=== PATIENT | male | born 1960 | race African-American/Black ===

== ENCOUNTER 2017-01-28 17:46 | Inpatient (IN) | payer OTHER ==
[2017-01-28 18:22] VITALS: BMI 25.0
--- NOTE | 2017-01-28 20:50 | HP ---
COWS - Scale Resting Pulse: 0= IN 80 or Below Sweatin=Flushed/Facial Moisture Restless Observation: 3= Extraneous Movement Pupil Size: 2= Moderately Dilated Bone or Joint Aches: 2= Severe Diffuse Aches Runny Nose/ Eye Tearin= Runny Nose/Eyes GI Upset > 30mins: 3= Vomiting/Diarrhea Tremor Observation: 2= Slight Tremor Visible Yawning Observation: 2= >3x During Session Anxiety or Irritability: 2=Irritable/Anxious Goose Flesh Skin: 0=Smooth Skin COWS Score: 20 Admission ROS BHS - HPI Chief Complaint: i am here to stop using heroin,cocaine,alcohol Allergies/Adverse Reactions: Allergies Allergy/AdvReac Type Severity Reaction Status Date / Time No Known Allergies Allergy Verified 01/28/17 20:45 History of Present Illness: this 57 years old male with heroin,cocaine and alcohol dependence,seeking detox, last treatment 11/05 in facility in [place] nicotine dependence multiple admissions in detox,keep relapsing longest period of sobriety 2 years Exam Limitations: No Limitations - Ebola screening Have you traveled outside of the country in the last 21 days: No Have you had contact with anyone from an Ebola affected area: No Have you been sick,other than usual withdrawal symptoms: No Do you have a fever: No - Review of Systems Constitutional: Diaphoresis, Loss of Appetite, Malaise, Night Sweats, Weakness, Unintentional Wgt. Loss, Unexplained wgt Loss EENT: reports: Tearing, Nose Congestion Respiratory: reports: No Symptoms reported, Other (asthma) Cardiac: reports: No Symptoms Reported GI: reports: Diarrhea, Nausea, Vomiting, Abdominal cramping : reports: No Symptoms Reported Musculoskeletal: reports: Back Pain, Joint Pain, Muscle Pain Integumentary: reports: Dryness Neuro: reports: Headache Endocrine: reports: No Symptoms Reported Hematology: reports: No Symptoms Reported Psychiatric: reports: No Sypmtoms Reported, Judgement Intact, Mood/Affect Appropiate, Orientated x3 Other Systems: Reviewed and Negative Patient History - Patient Medical History Hx Anemia: No Hx Asthma: Yes (on albuterol inhaler) Hx Chronic Obstructive Pulmonary Disease (COPD): No Hx Cancer: No Hx Cardiac Disorders: No Hx Congestive Heart Failure: No Hx Hypertension: No Hx Hypercholesterolemia: No Hx Pacemaker: No HX Cerebrovascular Accident: No Hx Seizures: No Hx Dementia: No Hx Diabetes: No Hx Gastrointestinal Disorders: No Hx Liver Disease: No Hx Genitourinary Disorders: No Hx Sexually Transmitted Disorders: No Hx Renal Disease (ESRD): No Hx Thyroid Disease: No Hx Human Immunodeficiency Virus (HIV): No (last 12/06 negative) Hx Hepatitis C: No Hx Depression: No Hx Suicide Attempt: No Hx Bipolar Disorder: No Hx Schizophrenia: No Other Medical History: no suicidal,no homicidal - Patient Surgical History Past Surgical History: No - PPD History Previous Implant?: Yes Documented Results: Negative w/o proof Implanted On Prior R Admission?: No PPD to be Administered?: Yes - Smoking Cessation Smoking history: Current every day smoker Have you smoked in the past 12 months: Yes Aproximately how many cigarettes per day: 5 Cigars Per Day: 0 Hx Chewing Tobacco Use: No Initiated information on smoking cessation: Yes 'Breaking Loose' booklet given: 01/28/17 - Substance & Tx. History Hx Alcohol Use: Yes Hx Substance Use: Yes Substance Use Type: Alcohol, Cocaine, Heroin Hx Substance Use Treatment: Yes ([facility] in [place] in 11/05) - Substances Abused Heroin Route: Inhalation Frequency: Daily Amount used: 5 bags Age of first use: 50 Date of Last Use: 01/28/17 Alcohol Route: Oral Frequency: Daily Amount used: 2 pints of vodka/2 of 6 packs of 12 ozs of beer Age of first use: 45 Date of Last Use: 01/28/17 Cocaine Route: Inhalation Frequency: 3-6 times per week Amount used: 100$ Age of first use: 55 Date of Last Use: 01/28/17 Family Disease History - Family Disease History Family History: Denies Admission Physical Exam [facility] - Vital Signs Vital Signs: Vital Signs - 24 hr 01/28/17 18:14 Temperature 98.0 F Pulse Rate 68 Respiratory 16 Rate Blood Pressure 144/87 - Physical General Appearance: Yes: Moderate Distress, Tremorous, Irritable, Sweating, Anxious HEENTM: Yes: JOSE CARLOS, Pharynx Normal Respiratory: Yes: Lungs Clear, Normal Breath Sounds, No Respiratory Distress Neck: Yes: Within Normal Limits, Supple, Trachea in good position Breast: Yes: Within Normal Limits Cardiology: Yes: Within Normal Limits, Regular Rhythm, Regular Rate, S1, S2 Abdominal: Yes: Within Normal Limits, Normal Bowel Sounds, Non Tender, Flat, Soft Genitourinary: Yes: Within Normal Limits Back: Yes: Within Normal Limits Musculoskeletal: Yes: full range of Motion, Back pain, Joint Stiffness, Muscle Pain Extremities: Yes: Normal Range of Motion, Tremors, Other (deformity of left middle finger old injury) Neurological: Yes: complex director II-XII NML intact, Fully Oriented, Alert, Motor Strength 5/5 Integumentary: Yes: Within Normal Limits, Dry Lymphatic: Yes: Within Normal Limits - Diagnostic (1) Opioid dependence with withdrawal Current Visit: Yes Status: Acute (2) Alcohol dependence with uncomplicated withdrawal Current Visit: Yes Status: Acute (3) Cocaine dependence Current Visit: Yes Status: Acute (4) Nicotine dependence Current Visit: Yes Status: Acute (5) Weight loss Current Visit: Yes Status: Acute (6) Asthma Current Visit: Yes Status: Acute Cleared for Admission [facility] - Detox or Rehab [facility] Level of Care: Medically Managed Detox Regimen/Protocol: Methadone/Librium S Breath Alcohol Content Breath Alcohol Content: 0 Urine Drug Screen - Results Urine Drug Screen Results: SAE-Cocaine, OPI-Opiates
[2017-01-28] MEDS ORDERED: IBUPROFEN 400 MG TABLET (FP) PO PRN (21:12)
[2017-01-28] MEDS ORDERED: MAGNESIUM CITRATE 300 ML BOTTLE PO PRN (21:12)
[2017-01-28] MEDS ORDERED: ACETAMINOPHEN 325 MG TABLET (FP) PO PRN (21:12)
[2017-01-28] MEDS ORDERED: diphenhydrAMINE HCL 50 MG CAPSULE PO PRN (21:12)
[2017-01-28] MEDS ORDERED: hydrOXYzine PAMOATE 25 MG CAPSULE (FP) PO PRN (21:12)
[2017-01-28] MEDS ORDERED: MAG HYDROX/AL HYDROX/SIMETH 30 ML UNIT-DOSE CUP PO PRN (21:12)
[2017-01-28] MEDS ORDERED: METHADONE HCL 10 MG TABLET (FOR DETOX USE ONLY) PO ONE ×2 (21:12→23:00)
[2017-01-28] MEDS ORDERED: chlordiazePOXIDE HCL 25 MG CAPSULE PO PRN (21:12)
[2017-01-28] MEDS ORDERED: P-EPHED 60MG/TRIPROLIDI 2.5MG TABLET PO PRN (21:12)
[2017-01-28] MEDS ORDERED: MENTHOL/PHENOL 1 EACH UD MM PRN (21:12)
[2017-01-28] MEDS ORDERED: guaiFENesin/D-METHORPHAN HB 10 ML UNIT-DOSE CUPS PO PRN (21:12)
[2017-01-28] MEDS ORDERED: MAGNESIUM HYDROX 2400MG/30ML ORAL SUSPENSION 30 ML CUP PO PRN (21:12)
[2017-01-28] MEDS ORDERED: LOPERAMIDE HCL 2 MG CAPSULE PO PRN (21:12)
[2017-01-28] MEDS ORDERED: ALBUTEROL SO4 6.7 GM HFA INHALER IH PRN (21:16)
[2017-01-28] MEDS: chlordiazePOXIDE HCL 25 MG CAPSULE PO SCH (22:54)
[2017-01-28] MEDS: THIAMINE HCL 100 MG TABLET (FP) PO SCH (22:55)
[2017-01-28 23:11] LABS: URINE APPEARANCE CLEAR; URINE BILIRUBIN NEGATIVE (NEGATIVE); URINE BLOOD NEGATIVE (NEGATIVE); URINE COLOR LTYELLOW; URINE GLUCOSE (UA) NEGATIVE (NEGATIVE); URINE KETONE 1+ (NEGATIVE); URINE LEUK ESTERASE NEGATIVE (NEGATIVE); URINE NITRITE NEGATIVE (NEGATIVE); URINE PROTEIN NEGATIVE (NEGATIVE); URINE UROBILINOGEN NEGATIVE mg/dL (0.2-1.0)
[2017-01-29] MEDS: chlordiazePOXIDE HCL 25 MG CAPSULE PO SCH ×4 (06:05→22:49)
[2017-01-29] MEDS ORDERED: METHADONE HCL 10 MG TABLET (FOR DETOX USE ONLY) PO SCH (10:00)
[2017-01-29 10:02] LABS: MCH 30.7 pg (25.7-33.7); MCHC 33.8 g/dl (32.0-35.9); MEAN CELL VOLUME 90.9 fl (80-96); MEAN PLT VOLUME 9.3 fl (7.5-11.1); PLATELET COUNT 175 K/MM3 (134-434); RDW 14.4 % (11.9-15.9); WHITE BLOOD COUNT 4.3 K/mm3 (4.0-10.0)
[2017-01-29 10:09] LABS: ALBUMIN 3.1 g/dl (3.4-5.0); ANION GAP 5 (8-16); CALCIUM 8.6 mg/dL (8.5-10.1); CO2 32 mmol/L (21-32); GLUCOSE,RANDOM 139 mg/dL (74-106)
[2017-01-29 10:12] LABS: ALK PHOS 67 U/L (45-117); BILIRUBIN,TOTAL 0.8 mg/dL (0.2-1.0); CREATININE 0.9 mg/dL (0.7-1.3); SGOT/AST 19 U/L (15-37); SGPT/ALT 25 U/L (12-78); TOT PROT 6.3 g/dl (6.4-8.2)
[2017-01-29] MEDS: PRENATAL VITAMINS W/ FOLIC ACID TABLET (FP) PO SCH (11:05)
--- NOTE | 2017-01-29 11:19 | PN ---
[facility] CIWA - CIWA Score Nausea/Vomitin Muscle Tremors: 3 Anxiety: 3 Agitation: 2 Paroxysmal Sweats: 1-Minimal Palms Moist Orientation: 0-Oriented Tacttile Disturbances: 1-Very Mild Itch/Numbness Auditory Disturbances: 1-Very Mild Visual Disturbances: 1-Very Mild Sensitivity Headache: 2-Mild CIWA-Ar Total Score: 17 BHS COWS - Scale Resting Pulse: 0= [place] 80 or Below Sweatin= Chills/Flushing Restless Observation: 3= Extraneous Movement Pupil Size: 1= Pupils >than Normal Bone or Joint Aches: 2= Severe Diffuse Aches Runny Nose/ Eye Tearin= Runny Nose/Eyes GI Upset > 30mins: 3= Vomiting/Diarrhea Tremor Observation of Outstretched Hands: 2= Slight Tremor Visible Yawning Observation: 1= 1-2x During Session Anxiety or Irritability: 2=Irritable/Anxious Goose Flesh Skin: 0=Smooth Skin COWS Score: 17 S Progress Note (SOAP) Subjective: alert,irritable,anxious,interrupted sleep,tremor,pain in the body and back Objective: 01/29/17 11:16 Vital Signs Temperature 97.7 F 01/29/17 06:09 Pulse Rate 62 01/29/17 06:09 Respiratory Rate 16 01/29/17 06:09 Blood Pressure 101/87 01/29/17 06:09 O2 Sat by Pulse Oximetry (%) ekg nsr,inverted t in 3 no chest pain,no sob,no dizziness Laboratory Last Values WBC 4.3 K/mm3 (4.0-10.0) 01/29/17 07:00 RBC 4.25 M/mm3 (4.00-5.60) 01/29/17 07:00 Hgb 13.0 GM/dL (11.7-16.9) 01/29/17 07:00 Hct 38.6 % (35.4-49) 01/29/17 07:00 MCV 90.9 fl (80-96) 01/29/17 07:00 MCH 30.7 pg (25.7-33.7) 01/29/17 07:00 MCHC 33.8 g/dl (32.0-35.9) 01/29/17 07:00 RDW 14.4 % (11.9-15.9) 01/29/17 07:00 Plt Count 175 K/MM3 (134-434) 01/29/17 07:00 MPV 9.3 fl (7.5-11.1) 01/29/17 07:00 Sodium 141 mmol/L (136-145) 01/29/17 07:00 Potassium 3.4 mmol/L (3.5-5.1) L 01/29/17 07:00 Chloride 104 mmol/L (98-107) 01/29/17 07:00 Carbon Dioxide 32 mmol/L (21-32) 01/29/17 07:00 Anion Gap 5 (8-16) L 01/29/17 07:00 BUN 8 mg/dL (7-18) 01/29/17 07:00 Creatinine 0.9 mg/dL (0.7-1.3) 01/29/17 07:00 Creat Clearance w eGFR > 60 (>60) 01/29/17 07:00 Random Glucose 139 mg/dL (74-106) H 01/29/17 07:00 Calcium 8.6 mg/dL (8.5-10.1) 01/29/17 07:00 Total Bilirubin 0.8 mg/dL (0.2-1.0) 01/29/17 07:00 AST 19 U/L (15-37) 01/29/17 07:00 ALT 25 U/L (12-78) 01/29/17 07:00 Alkaline Phosphatase 67 U/L (45-117) 01/29/17 07:00 Total Protein 6.3 g/dl (6.4-8.2) L 01/29/17 07:00 Albumin 3.1 g/dl (3.4-5.0) L 01/29/17 07:00 Urine Color Ltyellow 01/28/17 Unknown Urine Appearance Clear 01/28/17 Unknown Urine pH 5.0 (5.0-8.0) 01/28/17 Unknown Urine Protein Negative (NEGATIVE) 01/28/17 Unknown Urine Glucose (UA) Negative (NEGATIVE) 01/28/17 Unknown Urine Ketones 1+ (NEGATIVE) H 01/28/17 Unknown Urine Blood Negative (NEGATIVE) 01/28/17 Unknown Urine Nitrite Negative (NEGATIVE) 01/28/17 Unknown Urine Bilirubin Negative (NEGATIVE) 01/28/17 Unknown Urine Urobilinogen Negative mg/dL (0.2-1.0) 01/28/17 Unknown Ur Leukocyte Esterase Negative (NEGATIVE) 01/28/17 Unknown Assessment: 01/29/17 11:18 withdrawal symptom Plan: continue detox,k dur 20 meq po daily for hypokalemia k is 3.2,repeat k and fasting glucose in am
[2017-01-29] MEDS ORDERED: POTASSIUM CHLORIDE TABS 20 MEQ TABLET.ER (FP) PO ONE (11:21)
[2017-01-29] MEDS: NICOTINE 14 MG/24 HOURS TOPICAL PATCH TD SCH (11:23)
--- NOTE | 2017-01-29 15:37 | EKG ---
Test Reason : Blood Pressure : / mmHG Vent. Rate : 063 BPM Atrial Rate : 063 BPM P-R Int : 190 ms QRS Dur : 096 ms QT Int : 418 ms P-R-T Axes : 050 -30 007 degrees QTc Int : 427 ms NORMAL SINUS RHYTHM POSSIBLE LEFT ATRIAL ENLARGEMENT LEFT AXIS DEVIATION INCOMPLETE RIGHT BUNDLE BRANCH BLOCK ANTEROSEPTAL INFARCT , AGE UNDETERMINED ABNORMAL ECG NO PREVIOUS ECGS AVAILABLE Confirmed by VALERIE ORELLANA, SONIA ([id number]) on 01/29/2017 3:37:14 PM Referred By: Confirmed By:SONIA PADILLA MD
[2017-01-29] MEDS: THIAMINE HCL 100 MG TABLET (FP) PO SCH (22:50)
[2017-01-30] MEDS: chlordiazePOXIDE HCL 25 MG CAPSULE PO SCH ×3 (05:45→17:55)
--- NOTE | 2017-01-30 09:46 | PN ---
S CIWA - CIWA Score Nausea/Vomitin Muscle Tremors: 3 Anxiety: 3 Agitation: 2 Paroxysmal Sweats: 1-Minimal Palms Moist Orientation: 0-Oriented Tacttile Disturbances: 1-Very Mild Itch/Numbness Auditory Disturbances: 1-Very Mild Visual Disturbances: 0-None Headache: 2-Mild CIWA-Ar Total Score: 16 BHS COWS - Scale Resting Pulse: 0= [place] 80 or Below Sweatin= Chills/Flushing Restless Observation: 3= Extraneous Movement Pupil Size: 1= Pupils >than Normal Bone or Joint Aches: 2= Severe Diffuse Aches Runny Nose/ Eye Tearin= Nasal Congestion GI Upset > 30mins: 2= Nausea/Diarrhea Tremor Observation of Outstretched Hands: 2= Slight Tremor Visible Yawning Observation: 1= 1-2x During Session Anxiety or Irritability: 2=Irritable/Anxious Goose Flesh Skin: 0=Smooth Skin COWS Score: 15 BHS Progress Note (SOAP) Subjective: alert,irritable,anxious,interrupted sleep,tremor,pain in the body and back Objective: 01/30/17 09:43 Vital Signs Temperature 96.3 F L 01/30/17 06:19 Pulse Rate 60 01/30/17 06:19 Respiratory Rate 16 01/30/17 06:19 Blood Pressure 108/69 01/30/17 06:19 O2 Sat by Pulse Oximetry (%) Laboratory Results - last 24 hr 01/28/17 01/29/17 01/29/17 Unknown 07:00 07:00 WBC 4.3 RBC 4.25 Hgb 13.0 Hct 38.6 MCV 90.9 MCH 30.7 MCHC 33.8 RDW 14.4 Plt Count 175 MPV 9.3 Sodium 141 Potassium 3.4 L Chloride 104 Carbon Dioxide 32 Anion Gap 5 L BUN 8 Creatinine 0.9 Creat Clearance w eGFR > 60 Random Glucose 139 H Calcium 8.6 Total Bilirubin 0.8 AST 19 ALT 25 Alkaline Phosphatase 67 Total Protein 6.3 L Albumin 3.1 L Urine Color Ltyellow Urine Appearance Clear Urine pH 5.0 Ur Specific [place] 1.015 Urine Protein Negative Urine Glucose (UA) Negative Urine Ketones 1+ H Urine Blood Negative Urine Nitrite Negative Urine Bilirubin Negative Urine Urobilinogen Negative Ur Leukocyte Esterase Negative RPR Titer 01/29/17 07:00 WBC RBC Hgb Hct MCV MCH MCHC RDW Plt Count MPV Sodium Potassium Chloride Carbon Dioxide Anion Gap BUN Creatinine Creat Clearance w eGFR Random Glucose Calcium Total Bilirubin AST ALT Alkaline Phosphatase Total Protein Albumin Urine Color Urine Appearance Urine pH Ur Specific [place] Urine Protein Urine Glucose (UA) Urine Ketones Urine Blood Urine Nitrite Urine Bilirubin Urine Urobilinogen Ur Leukocyte Esterase RPR Titer Nonreactive Assessment: 01/30/17 09:45 withdrawal symptom Plan: continue detox,fasting glucose and repeat k pending
[2017-01-30] MEDS: POTASSIUM CHLORIDE TABS 20 MEQ TABLET.ER (FP) PO SCH (10:29)
[2017-01-30] MEDS: METHADONE HCL 5 MG TABLET (FOR DETOX USE ONLY) PO SCH (10:29)
[2017-01-30] MEDS: PRENATAL VITAMINS W/ FOLIC ACID TABLET (FP) PO SCH (10:29)
[2017-01-30] MEDS: NICOTINE 14 MG/24 HOURS TOPICAL PATCH TD SCH (10:30)
[2017-01-30] MEDS: chlordiazePOXIDE 5 MG CAPSULE PO SCH (22:30)
[2017-01-30] MEDS: THIAMINE HCL 100 MG TABLET (FP) PO SCH (22:31)
[2017-01-31] MEDS: chlordiazePOXIDE 5 MG CAPSULE PO SCH ×3 (06:39→17:49)
--- NOTE | 2017-01-31 09:58 | PN ---
BHS Progress Note (SOAP) Subjective: Sweating,interrupted sleep,restless,muscle aches. Objective: 01/31/17 09:56 Vital Signs - 8 hr 01/31/17 01/31/17 01/31/17 03:30 06:00 09:50 Temperature 97.7 F 99.3 F Pulse Rate 58 L 82 Respiratory 18 18 18 Rate Blood Pressure 114/64 100/70 Laboratory Last Values WBC 4.3 K/mm3 (4.0-10.0) 01/29/17 07:00 RBC 4.25 M/mm3 (4.00-5.60) 01/29/17 07:00 Hgb 13.0 GM/dL (11.7-16.9) 01/29/17 07:00 Hct 38.6 % (35.4-49) 01/29/17 07:00 MCV 90.9 fl (80-96) 01/29/17 07:00 MCH 30.7 pg (25.7-33.7) 01/29/17 07:00 MCHC 33.8 g/dl (32.0-35.9) 01/29/17 07:00 RDW 14.4 % (11.9-15.9) 01/29/17 07:00 Plt Count 175 K/MM3 (134-434) 01/29/17 07:00 MPV 9.3 fl (7.5-11.1) 01/29/17 07:00 Sodium 141 mmol/L (136-145) 01/29/17 07:00 Potassium 3.8 mmol/L (3.5-5.1) 01/30/17 07:00 Chloride 104 mmol/L (98-107) 01/29/17 07:00 Carbon Dioxide 32 mmol/L (21-32) 01/29/17 07:00 Anion Gap 5 (8-16) L 01/29/17 07:00 BUN 8 mg/dL (7-18) 01/29/17 07:00 Creatinine 0.9 mg/dL (0.7-1.3) 01/29/17 07:00 Creat Clearance w eGFR > 60 (>60) 01/29/17 07:00 Random Glucose 139 mg/dL (74-106) H 01/29/17 07:00 Fasting Glucose 99 mg/dL (70-105) 01/30/17 07:00 Calcium 8.6 mg/dL (8.5-10.1) 01/29/17 07:00 Total Bilirubin 0.8 mg/dL (0.2-1.0) 01/29/17 07:00 AST 19 U/L (15-37) 01/29/17 07:00 ALT 25 U/L (12-78) 01/29/17 07:00 Alkaline Phosphatase 67 U/L (45-117) 01/29/17 07:00 Total Protein 6.3 g/dl (6.4-8.2) L 01/29/17 07:00 Albumin 3.1 g/dl (3.4-5.0) L 01/29/17 07:00 Urine Color Ltyellow 01/28/17 Unknown Urine Appearance Clear 01/28/17 Unknown Urine pH 5.0 (5.0-8.0) 01/28/17 Unknown Ur Specific [place] 1.015 (1.005-1.025) 01/28/17 Unknown Urine Protein Negative (NEGATIVE) 01/28/17 Unknown Urine Glucose (UA) Negative (NEGATIVE) 01/28/17 Unknown Urine Ketones 1+ (NEGATIVE) H 01/28/17 Unknown Urine Blood Negative (NEGATIVE) 01/28/17 Unknown Urine Nitrite Negative (NEGATIVE) 01/28/17 Unknown Urine Bilirubin Negative (NEGATIVE) 01/28/17 Unknown Urine Urobilinogen Negative mg/dL (0.2-1.0) 01/28/17 Unknown Ur Leukocyte Esterase Negative (NEGATIVE) 01/28/17 Unknown RPR Titer Nonreactive (NONREACTIVE) 01/29/17 07:00 labs noted Assessment: 01/31/17 09:57 Withdrawal sx. Plan: Continue detox
[2017-01-31] MEDS: METHADONE HCL 5 MG TABLET (FOR DETOX USE ONLY) PO SCH (10:10)
[2017-01-31] MEDS: PRENATAL VITAMINS W/ FOLIC ACID TABLET (FP) PO SCH (10:10)
[2017-01-31] MEDS: POTASSIUM CHLORIDE TABS 20 MEQ TABLET.ER (FP) PO SCH (10:10)
[2017-01-31] MEDS: NICOTINE 14 MG/24 HOURS TOPICAL PATCH TD SCH (10:13)
[2017-01-31] MEDS: THIAMINE HCL 100 MG TABLET (FP) PO SCH (22:43)
[2017-01-31] MEDS: chlordiazePOXIDE HCL 10 MG CAPSULE PO SCH (22:43)
[2017-02-01] MEDS: chlordiazePOXIDE HCL 10 MG CAPSULE PO SCH ×3 (05:24→18:40)
[2017-02-01] MEDS ORDERED: METHADONE HCL 10 MG TABLET (FOR DETOX USE ONLY) PO SCH (10:00)
[2017-02-01] MEDS: NICOTINE 14 MG/24 HOURS TOPICAL PATCH TD SCH (10:09)
[2017-02-01] MEDS: POTASSIUM CHLORIDE TABS 20 MEQ TABLET.ER (FP) PO SCH (10:09)
[2017-02-01] MEDS: PRENATAL VITAMINS W/ FOLIC ACID TABLET (FP) PO SCH (10:09)
--- NOTE | 2017-02-01 13:41 | PN ---
BHS Progress Note (SOAP) Subjective: Sweating,interrupted sleep,restless Objective: 02/01/17 13:40 Vital Signs - 8 hr 02/01/17 02/01/17 06:00 10:00 Temperature 97.5 F L 98.1 F Pulse Rate 54 L 71 Respiratory 18 20 Rate Blood Pressure 111/68 125/63 Laboratory Last Values WBC 4.3 K/mm3 (4.0-10.0) 01/29/17 07:00 RBC 4.25 M/mm3 (4.00-5.60) 01/29/17 07:00 Hgb 13.0 GM/dL (11.7-16.9) 01/29/17 07:00 Hct 38.6 % (35.4-49) 01/29/17 07:00 MCV 90.9 fl (80-96) 01/29/17 07:00 MCH 30.7 pg (25.7-33.7) 01/29/17 07:00 MCHC 33.8 g/dl (32.0-35.9) 01/29/17 07:00 RDW 14.4 % (11.9-15.9) 01/29/17 07:00 Plt Count 175 K/MM3 (134-434) 01/29/17 07:00 MPV 9.3 fl (7.5-11.1) 01/29/17 07:00 Sodium 141 mmol/L (136-145) 01/29/17 07:00 Potassium 3.8 mmol/L (3.5-5.1) 01/30/17 07:00 Chloride 104 mmol/L (98-107) 01/29/17 07:00 Carbon Dioxide 32 mmol/L (21-32) 01/29/17 07:00 Anion Gap 5 (8-16) L 01/29/17 07:00 BUN 8 mg/dL (7-18) 01/29/17 07:00 Creatinine 0.9 mg/dL (0.7-1.3) 01/29/17 07:00 Creat Clearance w eGFR > 60 (>60) 01/29/17 07:00 Random Glucose 139 mg/dL (74-106) H 01/29/17 07:00 Fasting Glucose 99 mg/dL (70-105) 01/30/17 07:00 Calcium 8.6 mg/dL (8.5-10.1) 01/29/17 07:00 Total Bilirubin 0.8 mg/dL (0.2-1.0) 01/29/17 07:00 AST 19 U/L (15-37) 01/29/17 07:00 ALT 25 U/L (12-78) 01/29/17 07:00 Alkaline Phosphatase 67 U/L (45-117) 01/29/17 07:00 Total Protein 6.3 g/dl (6.4-8.2) L 01/29/17 07:00 Albumin 3.1 g/dl (3.4-5.0) L 01/29/17 07:00 Urine Color Ltyellow 01/28/17 Unknown Urine Appearance Clear 01/28/17 Unknown Urine pH 5.0 (5.0-8.0) 01/28/17 Unknown Ur Specific [place] 1.015 (1.005-1.025) 01/28/17 Unknown Urine Protein Negative (NEGATIVE) 01/28/17 Unknown Urine Glucose (UA) Negative (NEGATIVE) 01/28/17 Unknown Urine Ketones 1+ (NEGATIVE) H 01/28/17 Unknown Urine Blood Negative (NEGATIVE) 01/28/17 Unknown Urine Nitrite Negative (NEGATIVE) 01/28/17 Unknown Urine Bilirubin Negative (NEGATIVE) 01/28/17 Unknown Urine Urobilinogen Negative mg/dL (0.2-1.0) 01/28/17 Unknown Ur Leukocyte Esterase Negative (NEGATIVE) 01/28/17 Unknown RPR Titer Nonreactive (NONREACTIVE) 01/29/17 07:00 labs noted Assessment: 02/01/17 13:41 Withdrawal sx. Plan: Continue detox
[2017-02-01] MEDS: THIAMINE HCL 100 MG TABLET (FP) PO SCH (23:01)
[2017-02-02] MEDS ORDERED: METHADONE HCL 5 MG TABLET (FOR DETOX USE ONLY) PO SCH (06:00)
[2017-02-02 06:22] VITALS: BP 103/69; PULSE 63; TEMP 97.5
--- NOTE | 2017-02-02 08:56 | DS ---
[facility] Detox Discharge Summary Admission Date: 01/28/17 Discharge Date: 02/02/17 - History Present History: Alcohol Dependence, Cocaine Dependence, Opioid Dependence Pertinent Past History: ASTHMA NICOTINE DEPENDENCE WEIGHT LOSS - Physical Exam Results Vital Signs: Vital Signs Temperature 97.5 F L 02/02/17 06:00 Pulse Rate 63 02/02/17 06:00 Respiratory Rate 18 02/02/17 06:00 Blood Pressure 103/69 02/02/17 06:00 O2 Sat by Pulse Oximetry (%) Pertinent Admission Physical Exam Findings: WITHDRAWAL FINDING - Treatment Hospital Course: Detox Protocol Followed, Detoxed Safely, Responded well, Discharged Condition Good Patient has Accepted a Rehab Referral to: DECLINED - Medication Discharge Medications: Ambulatory Orders Albuterol Sulfate Inhaler - [Ventolin Hfa Inhaler -] 2 inh PO Q6H PRN 01/28/17 - Diagnosis (1) Opioid dependence with withdrawal Current Visit: Yes Status: Acute (2) Alcohol dependence with uncomplicated withdrawal Current Visit: Yes Status: Acute (3) Cocaine dependence Current Visit: Yes Status: Acute (4) Nicotine dependence Current Visit: Yes Status: Acute (5) Weight loss Current Visit: Yes Status: Acute (6) Asthma Current Visit: Yes Status: Acute (7) Hypokalemia Current Visit: Yes Status: Acute - AMA Did Patient Leave Against Medical Advice: No
== END 2017-02-02 08:59 | disposition home or self-care (01) | DRG 773 ==
LOC: YASAS 17:46 → Y6N 21:56
PROVIDERS: ADMIT Internal Medicine Addiction Medicine; ATTEND Internal Medicine Addiction Medicine
PROC: HZ2ZZZZ Detoxification Services for Substance Abuse Treatment (ICD-10-PCS; principal; 2017-01-28)
DX: F11.23 Opioid dependence with withdrawal (principal); F10.230 Alcohol dependence with withdrawal, uncomplicated; F14.20 Cocaine dependence, uncomplicated; F17.210 Nicotine dependence, cigarettes, uncomplicated; J45.909 Unspecified asthma, uncomplicated; E87.6 Hypokalemia; Z87.898 Personal history of other specified conditions
CPT/HCPCS: 36415; 71010-TC; 80053; 81003; 82947; 84132; 85027; 86593; 93005; 93010

== ENCOUNTER 2023-10-13 12:47 | Inpatient (IN) | payer OTHER ==
[2023-10-13 13:57] VITALS: BMI 23.6
[2023-10-13] MEDS ORDERED: BENZOCAINE/MENTHOL (CHLORASEPTIC ) LOZENGE MM PRN (15:20)
[2023-10-13] MEDS ORDERED: MAGNESIUM HYDROX 2400MG/30ML ORAL SUSPENSION 30 ML CUP PO PRN (15:20)
[2023-10-13] MEDS ORDERED: ACETAMINOPHEN 325 MG TABLET (FP) PO PRN (15:20)
[2023-10-13] MEDS ORDERED: NALOXONE HCL 0.4 MG/ML VIAL IM PRN (15:20)
[2023-10-13] MEDS ORDERED: DICYCLOMINE HCL 10 MG CAPSULE PO PRN (15:20)
[2023-10-13] MEDS ORDERED: guaiFENesin 600 MG TABLET.ER (FP) PO PRN (15:20)
[2023-10-13] MEDS ORDERED: LOPERAMIDE HCL 2 MG CAPSULE PO PRN (15:20)
[2023-10-13] MEDS ORDERED: BENZONATATE 200 MG CAPSULE PO PRN (15:20)
[2023-10-13] MEDS ORDERED: MAG HYDROX/AL HYDROX/SIMETH 30 ML UNIT-DOSE CUP PO PRN (15:20)
[2023-10-13] MEDS ORDERED: POLYETHYLENE GLYCOL (HEALTHYLAX) 3350 17 GM PACKET PO PRN (15:20)
[2023-10-13] MEDS ORDERED: BISMUTH SUBSALICYLATE 524 MG/30 ML PO PRN (15:20)
[2023-10-13] MEDS ORDERED: ONDANSETRON *ODT* 4 MG TABLET SL PRN (15:20)
[2023-10-13] MEDS ORDERED: NALOXONE HCL (KLOXXADO) 8 MG SPRAY NS PRN (15:20)
[2023-10-13] MEDS ORDERED: methaDONE HCL 10 MG TABLET (FOR DETOX USE ONLY) ONE (16:43)
[2023-10-13] MEDS: methaDONE HCL 10 MG TABLET (FOR DETOX USE ONLY) PO ONE (16:47)
[2023-10-13] MEDS: hydrOXYzine PAMOATE 25 MG CAPSULE (FP) PO PRN (22:25)
[2023-10-13] MEDS: THIAMINE 100 MG TABLET PO SCH (22:25)
[2023-10-13] MEDS: MELATONIN 5 MG TABLETS PO SCH (22:25)
[2023-10-14] MEDS ORDERED: ALBUTEROL SO4 HFA INHALER IH PRN (03:27)
[2023-10-14] MEDS: PRENATAL VITAMINS W/ FOLIC ACID TABLET (FP) PO SCH (09:10)
[2023-10-14] MEDS: GABAPENTIN 300 MG CAPSULE PO SCH (09:10)
[2023-10-14] MEDS: TAMSULOSIN HCL 0.4 MG CAP PO SCH (09:10)
[2023-10-14] MEDS: FLU VACCINE (FLULAVAL) PF 60 MCG/0.5 ML SYRINGE 2023-2024 IM ONE (11:16)
[2023-10-14] MEDS: PNEUMOC 20-VAL CONJ-DIP CRM/PF 0.5 ML SYRINGE IM ONE (11:16)
[2023-10-14 11:17] LABS: HEMATOCRIT 39.3 % (35.4-49); MCH 29.7 pg (25.7-33.7); MCHC 33.1 g/dl (32.0-35.9); MEAN CELL VOLUME 89.7 fl (80-96); MEAN PLT VOLUME 8.6 fl (7.5-11.1); PLATELET COUNT 206 10^3/uL (134-434); RBC 4.38 M/mm3 (4.00-5.60); RDW 13.5 % (11.9-15.9); WHITE BLOOD COUNT 6.3 K/mm3 (4.0-10.0)
[2023-10-14 11:42] LABS: CHLORIDE 107 mmol/L (98-107); SODIUM 141 mmol/L (136-145)
[2023-10-14 11:52] LABS: ALBUMIN 3.4 g/dl (3.4-5.0); ANION GAP 5 mmol/L (4-13); BLOOD UREA NITROGEN 6.9 mg/dL (7-18); CALCIUM 9.2 mg/dL (8.5-10.1); CO2 29 mmol/L (21-32)
[2023-10-14 11:55] LABS: CREATININE 0.7 mg/dL (0.55-1.3); SGOT/AST 18 U/L (15-37); SGPT/ALT 25 U/L (13-61)
[2023-10-14 11:56] LABS: GLUCOSE,RANDOM 86 mg/dL (74-106)
[2023-10-14 11:57] LABS: BILIRUBIN,TOTAL 1.3 mg/dL (0.2-1); TOT PROT 7.2 g/dl (6.4-8.2)
[2023-10-14 11:58] LABS: ALK PHOS 74 U/L (45-117)
[2023-10-14 12:18] LABS: HIV INTERPRETATION NEGATIVE (NEGATIVE)
[2023-10-14] MEDS: cloNIDine HCL 0.1 MG TABLET PO PRN (22:26)
[2023-10-15] MEDS: methaDONE HCL 10 MG TABLET (FOR DETOX USE ONLY) PO ONE (10:46)
[2023-10-15] MEDS: IBUPROFEN 600 MG TABLET (FP) PO PRN (10:49)
[2023-10-15] MEDS: METHOCARBAMOL 500 MG TABLET PO PRN (22:32)
[2023-10-17] MEDS: methaDONE HCL 10 MG TABLET (FOR DETOX USE ONLY) PO ONE (09:41)
[2023-10-17] MEDS: IBUPROFEN 400 MG TABLET (FP) PO PRN (22:32)
[2023-10-18 09:50] VITALS: BP 127/85; PULSE 78; RESP 16; TEMP 98.1
== END 2023-10-18 09:00 | disposition home or self-care (01) | DRG 773 ==
LOC: YASAS 12:47 → Y6N 16:48
PROVIDERS: ADMIT Allergy & Immunology; ATTEND Surgery
PROC: HZ2ZZZZ Detoxification Services for Substance Abuse Treatment (ICD-10-PCS; principal; 2023-10-13)
DX: F11.23 Opioid dependence with withdrawal (principal); F14.20 Cocaine dependence, uncomplicated; G62.9 Polyneuropathy, unspecified; J45.20 Mild intermittent asthma, uncomplicated; N40.0 Benign prostatic hyperplasia without lower urinary tract symptoms; R76.8 Other specified abnormal immunological findings in serum; Z86.19 Personal history of other infectious and parasitic diseases; Z86.11 Personal history of tuberculosis; Z87.891 Personal history of nicotine dependence
CPT/HCPCS: 36415; 71046-TC-FY; 80053; 80307; 85027; 86593; 86780; 87389; 93005; 93010

== ENCOUNTER 2023-12-09 11:35 | Inpatient (IN) | payer OTHER ==
[2023-12-09 11:58] VITALS: BMI 21.9
[2023-12-09] MEDS ORDERED: ONDANSETRON *ODT* 4 MG TABLET SL PRN (12:34)
[2023-12-09] MEDS ORDERED: guaiFENesin 600 MG TABLET.ER (FP) PO PRN (12:34)
[2023-12-09] MEDS ORDERED: IBUPROFEN 400 MG TABLET (FP) PO PRN (12:34)
[2023-12-09] MEDS ORDERED: P-EPHED 60MG/TRIPROLIDI 2.5MG TABLET PO PRN (12:34)
[2023-12-09] MEDS ORDERED: ACETAMINOPHEN 325 MG TABLET (FP) PO PRN (12:34)
[2023-12-09] MEDS ORDERED: BENZOCAINE/MENTHOL (CHLORASEPTIC ) LOZENGE MM PRN (12:34)
[2023-12-09] MEDS ORDERED: NALOXONE (NARCAN) HCL 4 MG/0.1 ML SPRAY NS PRN (12:34)
[2023-12-09] MEDS ORDERED: BISMUTH SUBSALICYLATE 524 MG/30 ML PO PRN (12:34)
[2023-12-09] MEDS ORDERED: BENZONATATE 200 MG CAPSULE PO PRN (12:34)
[2023-12-09] MEDS ORDERED: hydrOXYzine PAMOATE 25 MG CAPSULE (FP) PO PRN (12:34)
[2023-12-09] MEDS ORDERED: MAG HYDROX/AL HYDROX/SIMETH 30 ML UNIT-DOSE CUP PO PRN (12:34)
[2023-12-09] MEDS ORDERED: METHOCARBAMOL 500 MG TABLET PO PRN (12:34)
[2023-12-09] MEDS ORDERED: NICOTINE POLACRILEX 2 MG LOZENGE BC PRN (12:34)
[2023-12-09] MEDS ORDERED: MAGNESIUM HYDROX 2400MG/30ML ORAL SUSPENSION 30 ML CUP PO PRN (12:34)
[2023-12-09] MEDS ORDERED: NALOXONE HCL 0.4 MG/ML VIAL IM PRN (12:34)
[2023-12-09] MEDS ORDERED: LOPERAMIDE HCL 2 MG CAPSULE PO PRN (12:34)
[2023-12-09] MEDS ORDERED: POLYETHYLENE GLYCOL (HEALTHYLAX) 3350 17 GM PACKET PO PRN (12:34)
[2023-12-09] MEDS ORDERED: IBUPROFEN 600 MG TABLET (FP) PO PRN (12:34)
[2023-12-09] MEDS ORDERED: ALBUTEROL SO4 HFA INHALER IH PRN (13:18)
[2023-12-09] MEDS ORDERED: NICOTINE 7 MG/24 HOURS TOPICAL PATCH TD ONE (13:18)
[2023-12-09] MEDS: NICOTINE 7 MG/24 HOURS TOPICAL PATCH TD SCH (13:23)
[2023-12-09] MEDS ORDERED: cloNIDine HCL 0.1 MG TABLET PO PRN (20:34)
[2023-12-09] MEDS: methaDONE HCL 10 MG TABLET (FOR DETOX USE ONLY) PO ONE (21:12)
[2023-12-09] MEDS: MELATONIN 5 MG TABLETS PO SCH (21:13)
[2023-12-09] MEDS: THIAMINE 100 MG TABLET PO SCH (21:13)
[2023-12-09] MEDS: DICYCLOMINE HCL 10 MG CAPSULE PO PRN (21:14)
[2023-12-09] MEDS: TAMSULOSIN HCL 0.4 MG CAP PO SCH (21:29)
[2023-12-09] MEDS: GABAPENTIN 300 MG CAPSULE PO SCH (21:29)
[2023-12-10] MEDS ORDERED: TAMSULOSIN HCL 0.4 MG CAP PO SCH (08:30)
[2023-12-10] MEDS: PRENATAL VITAMINS W/ FOLIC ACID TABLET (FP) PO SCH (09:23)
[2023-12-10 12:13] LABS: HEMATOCRIT 39.3 % (35.4-49); HEMOGLOBIN 13.3 GM/dL (11.7-16.9); MCH 30.3 pg (25.7-33.7); MCHC 33.7 g/dl (32.0-35.9); MEAN CELL VOLUME 89.8 fl (80-96); MEAN PLT VOLUME 8.5 fl (7.5-11.1); PLATELET COUNT 241 10^3/uL (134-434); RBC 4.38 M/mm3 (4.00-5.60); RDW 14.4 % (11.9-15.9); WHITE BLOOD COUNT 5.1 K/mm3 (4.0-10.0)
[2023-12-10 12:29] LABS: POTASSIUM 4.1 mmol/L (3.5-5.1)
[2023-12-10 12:35] LABS: ALBUMIN 3.1 g/dl (3.4-5.0); BLOOD UREA NITROGEN 9.3 mg/dL (7-18); CALCIUM 9.1 mg/dL (8.5-10.1)
[2023-12-10 12:36] LABS: BILIRUBIN,TOTAL 0.5 mg/dL (0.2-1)
[2023-12-10 12:38] LABS: CREATININE 0.6 mg/dL (0.55-1.3)
[2023-12-10] MEDS: TAMSULOSIN HCL 0.4 MG CAP PO SCH (22:15)
[2023-12-11] MEDS: methaDONE HCL 10 MG TABLET (FOR DETOX USE ONLY) PO ONE (10:24)
[2023-12-11] MEDS: ASPIRIN 81 MG CHEWABLE TABLETS PO ONE ×2 (18:05→22:28)
[2023-12-11 20:36] VITALS: BP 143/77; PULSE 74; RESP 18; TEMP 98
[2023-12-13] MEDS ORDERED: methaDONE HCL 10 MG TABLET (FOR DETOX USE ONLY) PO ONE (10:00)
== END 2023-12-11 11:55 | disposition short-term general hospital (02) | DRG 773 ==
LOC: YASAS 11:35 → Y3N 12:58
PROVIDERS: ADMIT Allergy & Immunology; ATTEND Surgery
PROC: HZ2ZZZZ Detoxification Services for Substance Abuse Treatment (ICD-10-PCS; principal; 2023-12-09)
DX: F11.23 Opioid dependence with withdrawal (principal); F14.20 Cocaine dependence, uncomplicated; F17.210 Nicotine dependence, cigarettes, uncomplicated; G62.9 Polyneuropathy, unspecified; J45.909 Unspecified asthma, uncomplicated; N40.0 Benign prostatic hyperplasia without lower urinary tract symptoms; R07.9 Chest pain, unspecified; Z86.11 Personal history of tuberculosis
CPT/HCPCS: 36415; 80053; 80305; 80307; 85027; 86593; 86780; 93005; 93010

== ENCOUNTER 2023-12-11 23:32 | Observation (INO) | payer OTHER ==
[2023-12-12] MEDS ORDERED: ACETAMINOPHEN INJECTION 100 ML IVPB ONE (00:33)
[2023-12-12] MEDS: ACETAMINOPHEN 1000 MG/100 ML BAG IVPB ONE (00:37)
[2023-12-12 00:46] LABS: BASO % 0.6 % (0-2.0); EOS % 0.9 % (0-4.5); HEMATOCRIT 42.4 % (35.4-49); HEMOGLOBIN 14.3 GM/dL (11.7-16.9); LYMPH % 28.7 % (8-40); MCH 30.6 pg (25.7-33.7); MCHC 33.8 g/dl (32.0-35.9); MEAN CELL VOLUME 90.6 fl (80-96); MONO % 9.2 % (3.8-10.2); NEUT % 60.6 % (42.8-82.8); PLATELET COUNT 305 10^3/uL (134-434); RBC 4.68 M/mm3 (4.00-5.60); RDW 14.6 % (11.9-15.9); WHITE BLOOD COUNT 7.7 K/mm3 (4.0-10.0)
[2023-12-12 01:00] LABS: CHLORIDE 104 mmol/L (98-107); SODIUM 133 mmol/L (136-145)
[2023-12-12 01:02] LABS: CALCIUM 9.2 mg/dL (8.5-10.1)
[2023-12-12 01:03] LABS: ALBUMIN 3.5 g/dl (3.4-5.0); BLOOD UREA NITROGEN 9.1 mg/dL (7-18); CO2 27 mmol/L (21-32); GLUCOSE,RANDOM 83 mg/dL (74-106); MAGNESIUM 2.2 mg/dL (1.8-2.4)
[2023-12-12 01:06] LABS: CREATININE 0.8 mg/dL (0.55-1.3); SGOT/AST 64 U/L (15-37); SGPT/ALT 36 U/L (13-61)
[2023-12-12 01:08] LABS: BILIRUBIN,TOTAL 0.5 mg/dL (0.2-1)
[2023-12-12 01:09] LABS: ALK PHOS 81 U/L (45-117)
[2023-12-12 01:12] LABS: ANION GAP 1 mmol/L (4-13); POTASSIUM 7.1 mmol/L (3.5-5.1)
[2023-12-12 03:06] LABS: INR 1.3 (0.83-1.09); PROTHROMBIN TIME (PATIENT) 14.6 SEC (9.7-13.0)
[2023-12-12 03:09] LABS: ACTIVATED PTT 28.6 SECONDS (25.2-36.5)
[2023-12-12 05:44] VITALS: BMI 21.2
[2023-12-12] MEDS ORDERED: cloNIDine HCL 0.1 MG TABLET PO PRN (09:01)
[2023-12-12] MEDS: GABAPENTIN 300 MG CAPSULE PO SCH ×2 (09:39→21:06)
[2023-12-12] MEDS: ACETAMINOPHEN 500 MG TABLET (FP) PO PRN (09:39)
[2023-12-12] MEDS: TAMSULOSIN HCL 0.4 MG CAP PO SCH (09:40)
[2023-12-12] MEDS ORDERED: ALBUTEROL SO4 0.083% IH SOL 2.5 MG/3 ML VIAL.NEB. NEB PRN (11:44)
[2023-12-12] MEDS: MELATONIN 5 MG TABLETS PO ONE (22:29)
[2023-12-13 08:14] LABS: HEMATOCRIT 41.8 % (35.4-49); HEMOGLOBIN 13.9 GM/dL (11.7-16.9); MCH 30.3 pg (25.7-33.7); MCHC 33.3 g/dl (32.0-35.9); PLATELET COUNT 225 10^3/uL (134-434); RBC 4.59 M/mm3 (4.00-5.60); RDW 14.1 % (11.9-15.9); WHITE BLOOD COUNT 5.3 K/mm3 (4.0-10.0)
[2023-12-13 08:48] LABS: BLOOD UREA NITROGEN 10.9 mg/dL (7-18); CALCIUM 9.2 mg/dL (8.5-10.1)
[2023-12-13 08:51] LABS: PHOSPHOROUS 4.2 mg/dL (2.5-4.9); TOT PROT 7.4 g/dl (6.4-8.2)
[2023-12-13 08:52] LABS: ALBUMIN 3.5 g/dl (3.4-5.0); BILIRUBIN,TOTAL 0.7 mg/dL (0.2-1); MAGNESIUM 2.2 mg/dL (1.8-2.4)
[2023-12-13 08:55] LABS: CREATININE 0.8 mg/dL (0.55-1.3)
[2023-12-13] MEDS: methaDONE HCL 10 MG TABLET PO ONE (11:00)
[2023-12-13 13:20] VITALS: BP 119/71; PULSE 75; RESP 18; TEMP 98.4
== END 2023-12-13 13:30 | disposition other institution (70) ==
LOC: JER 23:32 → JERBED 12-12 02:04 → J4S 12-12 05:12
PROVIDERS: ADMIT Internal Medicine; ATTEND Internal Medicine
PROC: 3E033NZ Introduction of Analgesics, Hypnotics, Sedatives into Peripheral Vein, Percutaneous Approach (ICD-10-PCS; principal; 2023-12-12)
DX: S06.5X0A Traumatic subdural hemorrhage without loss of consciousness, initial encounter (principal); F11.20 Opioid dependence, uncomplicated; F14.20 Cocaine dependence, uncomplicated; W18.39XA Other fall on same level, initial encounter; Z91.81 History of falling; Y92.239 Unspecified place in hospital as the place of occurrence of the external cause; A15.9 Respiratory tuberculosis unspecified; J45.909 Unspecified asthma, uncomplicated; G62.9 Polyneuropathy, unspecified; N40.0 Benign prostatic hyperplasia without lower urinary tract symptoms
CPT/HCPCS: 36415; 70450-TC; 71045-TC-FY; 80053; 83735; 84100; 84132; 84484; 85025; 85027; 85610; 85730; 86850; 86900; 86901; 93005; 93010; 96374; 99285-25; G0378; J0131

== ENCOUNTER 2024-02-12 10:44 | Inpatient (IN) | payer OTHER ==
[2024-02-12 11:31] VITALS: BMI 22.4
[2024-02-12] MEDS ORDERED: MAG HYDROX/AL HYDROX/SIMETH 30 ML UNIT-DOSE CUP PO PRN (12:09)
[2024-02-12] MEDS ORDERED: BISMUTH SUBSALICYLATE 262 MG/15 ML BTL PO PRN (12:09)
[2024-02-12] MEDS ORDERED: guaiFENesin 600 MG TABLET.ER (FP) PO PRN (12:09)
[2024-02-12] MEDS ORDERED: IBUPROFEN 600 MG TABLET (FP) PO PRN (12:09)
[2024-02-12] MEDS ORDERED: NALOXONE (NARCAN) HCL 4 MG/0.1 ML SPRAY NS PRN (12:09)
[2024-02-12] MEDS ORDERED: LOPERAMIDE HCL 2 MG CAPSULE PO PRN (12:09)
[2024-02-12] MEDS ORDERED: POLYETHYLENE GLYCOL (HEALTHYLAX) 3350 17 GM PACKET PO PRN (12:09)
[2024-02-12] MEDS ORDERED: BENZOCAINE/MENTHOL (CHLORASEPTIC ) LOZENGE MM PRN (12:09)
[2024-02-12] MEDS ORDERED: ONDANSETRON *ODT* 4 MG TABLET SL PRN (12:09)
[2024-02-12] MEDS ORDERED: NALOXONE HCL 0.4 MG/ML VIAL IM PRN (12:09)
[2024-02-12] MEDS ORDERED: IBUPROFEN 400 MG TABLET (FP) PO PRN (12:09)
[2024-02-12] MEDS ORDERED: BENZONATATE 200 MG CAPSULE PO PRN (12:09)
[2024-02-12] MEDS ORDERED: MAGNESIUM HYDROX 2400MG/30ML ORAL SUSPENSION 30 ML CUP PO PRN (12:09)
[2024-02-12] MEDS ORDERED: DICYCLOMINE HCL 10 MG CAPSULE PO PRN (12:09)
[2024-02-12] MEDS ORDERED: cloNIDine HCL 0.1 MG TABLET PO PRN (12:10)
[2024-02-12] MEDS ORDERED: methaDONE HCL 10 MG TABLET (FOR DETOX USE ONLY) ONE (12:48)
[2024-02-12] MEDS ORDERED: PRENATAL VITAMINS W/ FOLIC ACID TABLET (FP) PO ONE (12:49)
[2024-02-12] MEDS: PRENATAL VITAMINS W/ FOLIC ACID TABLET (FP) PO SCH (12:56)
[2024-02-12] MEDS: methaDONE HCL 10 MG TABLET (FOR DETOX USE ONLY) PO ONE (12:56)
[2024-02-12] MEDS: ACETAMINOPHEN 325 MG TABLET (FP) PO PRN (13:57)
[2024-02-12] MEDS: TAMSULOSIN HCL 0.4 MG CAP PO SCH (22:11)
[2024-02-12] MEDS: THIAMINE 100 MG TABLET PO SCH (22:11)
[2024-02-12] MEDS: MELATONIN 5 MG TABLETS PO SCH (22:11)
[2024-02-13] MEDS: hydrOXYzine PAMOATE 25 MG CAPSULE (FP) PO PRN (09:49)
[2024-02-13 11:11] LABS: POTASSIUM 4.3 mmol/L (3.5-5.1)
[2024-02-13 11:14] LABS: CALCIUM 8.8 mg/dL (8.5-10.1)
[2024-02-13 11:15] LABS: ALBUMIN 3.2 g/dl (3.4-5.0); BLOOD UREA NITROGEN 9.9 mg/dL (7-18); HEMATOCRIT 37.8 % (35.4-49); HEMOGLOBIN 12.8 GM/dL (11.7-16.9); MCH 30.8 pg (25.7-33.7); MEAN CELL VOLUME 90.7 fl (80-96); MEAN PLT VOLUME 8.6 fl (7.5-11.1); PLATELET COUNT 175 10^3/uL (134-434); RBC 4.16 M/mm3 (4.00-5.60); RDW 13.6 % (11.9-15.9); WHITE BLOOD COUNT 4.3 K/mm3 (4.0-10.0)
[2024-02-13 11:18] LABS: CREATININE 0.8 mg/dL (0.55-1.3)
[2024-02-13 11:20] LABS: BILIRUBIN,TOTAL 0.5 mg/dL (0.2-1); TOT PROT 6.7 g/dl (6.4-8.2)
[2024-02-13] MEDS: METHOCARBAMOL 500 MG TABLET PO PRN (22:25)
[2024-02-14] MEDS: methaDONE HCL 10 MG TABLET (FOR DETOX USE ONLY) PO ONE (09:49)
[2024-02-14] MEDS: BISACODYL 5 MG TABLET.DR (FP) PO ONE (11:57)
[2024-02-14] MEDS: GABAPENTIN 300 MG CAPSULE PO SCH (11:57)
[2024-02-14 13:27] LABS: HIV INTERPRETATION NEGATIVE (NEGATIVE)
[2024-02-14] MEDS: DOCUSATE SODIUM 100 MG CAPSULE (FP) PO SCH (22:14)
[2024-02-15] MEDS: ALBUTEROL SO4 HFA INHALER IH PRN (14:41)
[2024-02-16] MEDS: methaDONE HCL 10 MG TABLET (FOR DETOX USE ONLY) PO ONE (09:33)
[2024-02-16 20:38] VITALS: TEMP 97.7
[2024-02-17 09:44] VITALS: BP 130/86; PULSE 71; RESP 17
== END 2024-02-17 09:14 | disposition home or self-care (01) | DRG 773 ==
LOC: YASAS 10:44 → Y3N 12:01
PROVIDERS: ADMIT Allergy & Immunology; ATTEND Surgery
PROC: HZ2ZZZZ Detoxification Services for Substance Abuse Treatment (ICD-10-PCS; principal; 2024-02-12)
DX: F11.23 Opioid dependence with withdrawal (principal); F14.20 Cocaine dependence, uncomplicated; G62.9 Polyneuropathy, unspecified; J45.909 Unspecified asthma, uncomplicated; M79.2 Neuralgia and neuritis, unspecified; N40.0 Benign prostatic hyperplasia without lower urinary tract symptoms; Z86.11 Personal history of tuberculosis; Z86.19 Personal history of other infectious and parasitic diseases
CPT/HCPCS: 36415; 80053; 80305; 80307; 85027; 86593; 86780; 87389; 93005; 93010

== ENCOUNTER 2024-09-09 11:37 | Inpatient (IN) | payer OTHER ==
[2024-09-09 12:02] VITALS: BMI 21.9
[2024-09-09] MEDS ORDERED: cloNIDine HCL 0.1 MG TABLET PO PRN (12:58)
[2024-09-09] MEDS ORDERED: methaDONE HCL 10 MG TABLET (FOR DETOX USE ONLY) PO PRN (12:58)
[2024-09-09] MEDS ORDERED: MAGNESIUM HYDROX 2400MG/30ML ORAL SUSPENSION 30 ML CUP PO PRN (12:59)
[2024-09-09] MEDS ORDERED: DICYCLOMINE HCL 10 MG CAPSULE PO PRN (12:59)
[2024-09-09] MEDS ORDERED: NALOXONE (NARCAN) HCL 4 MG/0.1 ML SPRAY NS PRN (12:59)
[2024-09-09] MEDS ORDERED: ONDANSETRON *ODT* 4 MG TABLET SL PRN (12:59)
[2024-09-09] MEDS ORDERED: guaiFENesin 600 MG TABLET.ER (FP) PO PRN (12:59)
[2024-09-09] MEDS ORDERED: BISMUTH SUBSALICYLATE 262 MG/15 ML BTL PO PRN (12:59)
[2024-09-09] MEDS ORDERED: BENZONATATE 200 MG CAPSULE PO PRN (12:59)
[2024-09-09] MEDS ORDERED: LOPERAMIDE HCL 2 MG CAPSULE PO PRN (12:59)
[2024-09-09] MEDS ORDERED: BENZOCAINE/MENTHOL (CHLORASEPTIC ) LOZENGE MM PRN (12:59)
[2024-09-09] MEDS ORDERED: IBUPROFEN 400 MG TABLET (FP) PO PRN (12:59)
[2024-09-09] MEDS ORDERED: MAG HYDROX/AL HYDROX/SIMETH 30 ML UNIT-DOSE CUP PO PRN (12:59)
[2024-09-09] MEDS ORDERED: POLYETHYLENE GLYCOL (HEALTHYLAX) 3350 17 GM PACKET PO PRN (12:59)
[2024-09-09] MEDS ORDERED: PRENATAL VITAMINS W/ FOLIC ACID TABLET (FP) PO ONE (13:33)
[2024-09-09] MEDS ORDERED: methaDONE HCL 10 MG TABLET (FOR DETOX USE ONLY) ONE (13:33)
[2024-09-09] MEDS: PRENATAL VITAMINS W/ FOLIC ACID TABLET (FP) PO SCH (13:35)
[2024-09-09] MEDS: methaDONE HCL 10 MG TABLET (FOR DETOX USE ONLY) PO ONE (13:36)
[2024-09-09] MEDS: NICOTINE 7 MG/24 HOURS TOPICAL PATCH TD SCH (19:35)
[2024-09-09] MEDS: MELATONIN 5 MG TABLETS PO SCH (22:33)
[2024-09-09] MEDS: THIAMINE 100 MG TABLET PO SCH (22:33)
[2024-09-10 09:31] LABS: HEMATOCRIT 41.5 % (40.1-51.0); HEMOGLOBIN 13.5 g/dL (13.7-17.5); MCHC 32.5 g/dl (32.3-36.5); MEAN CELL VOLUME 88.9 fl (79.0-92.2); MEAN PLT VOLUME 10.2 fl (9.4-12.4); PLATELET COUNT # 215 x10^3/uL (163-337); POTASSIUM 4.2 mmol/L (3.5-5.1); RDW 13.2 % (12.2-16.4)
[2024-09-10 10:10] LABS: ALBUMIN 3.5 g/dl (3.4-5.0); BLOOD UREA NITROGEN 10.8 mg/dL (7-18); CALCIUM 9.1 mg/dL (8.5-10.1)
[2024-09-10 10:14] LABS: CREATININE 0.7 mg/dL (0.55-1.3)
[2024-09-10 10:15] LABS: BILIRUBIN,TOTAL 0.6 mg/dL (0.2-1); TOT PROT 7.3 g/dl (6.4-8.2)
[2024-09-10] MEDS: methaDONE HCL 10 MG TABLET (FOR DETOX USE ONLY) PO ONE (10:48)
[2024-09-10] MEDS: TAMSULOSIN HCL 0.4 MG CAP PO SCH (12:37)
[2024-09-10] MEDS: GABAPENTIN 100 MG CAPSULE PO SCH (22:02)
[2024-09-11] MEDS: ACETAMINOPHEN 325 MG TABLET (FP) PO PRN (15:48)
[2024-09-11] MEDS: ALBUTEROL SO4 HFA INHALER IH PRN (15:49)
[2024-09-12] MEDS: methaDONE HCL 10 MG TABLET (FOR DETOX USE ONLY) PO ONE (10:19)
[2024-09-12] MEDS ORDERED: P-EPHED 60MG/TRIPROLIDI 2.5MG TABLET PO PRN (19:44)
[2024-09-12] MEDS: hydrOXYzine PAMOATE 25 MG CAPSULE (FP) PO PRN (22:06)
[2024-09-12] MEDS: METHOCARBAMOL 500 MG TABLET PO PRN (22:06)
[2024-09-12] MEDS: FLUTICASONE PROP 0.05% 16 GM NASAL SPRAY NS PRN (22:06)
[2024-09-13] MEDS: IBUPROFEN 600 MG TABLET (FP) PO PRN (11:12)
[2024-09-14] MEDS: methaDONE HCL 10 MG TABLET (FOR DETOX USE ONLY) PO ONE (09:11)
[2024-09-14 21:00] VITALS: RESP 16
[2024-09-15 07:25] VITALS: BP 112/84; PULSE 83; TEMP 98.2
== END 2024-09-15 09:09 | disposition home or self-care (01) | DRG 773 ==
LOC: YASAS 11:37 → Y6N 13:54
PROVIDERS: ADMIT Allergy & Immunology; ATTEND Allergy & Immunology
PROC: HZ2ZZZZ Detoxification Services for Substance Abuse Treatment (ICD-10-PCS; principal; 2024-09-09)
DX: F11.23 Opioid dependence with withdrawal (principal); F14.20 Cocaine dependence, uncomplicated; F17.210 Nicotine dependence, cigarettes, uncomplicated; F19.282 Other psychoactive substance dependence with psychoactive substance-induced sleep disorder; F19.24 Other psychoactive substance dependence with psychoactive substance-induced mood disorder; G62.9 Polyneuropathy, unspecified; N40.0 Benign prostatic hyperplasia without lower urinary tract symptoms; R63.6 Underweight; Z68.21 Body mass index [BMI] 21.0-21.9, adult; Z20.2 Contact with and (suspected) exposure to infections with a predominantly sexual mode of transmission
CPT/HCPCS: 36415; 80053; 80305; 80307; 85027; 86593; 86780; 93005; 93010